=== PATIENT | female | born 1955 | race Caucasian/White ===

== ENCOUNTER → 2020-11-13 | Outpatient (CLI) | payer MEDICARE, OTHER ==
[~2020-11-13] MED LIST: IOHEXOL 350 MG/ML 100 ML VIAL. IV ONE
[2020-11-13 16:46] LABS: ALBUMIN 3.3 g/dL (3.4-5.0); ALBUMIN/GLOBULIN RATIO 0.7 (1.0-1.7); CALCIUM 9.2 mg/dL (8.5-10.1); CREATININE 0.8 mg/dL (0.6-1.0); TOTAL BILIRUBIN 0.2 mg/dL (0.2-1.0); TOTAL PROTEIN 8.3 g/dL (6.4-8.2)
--- NOTE | 2020-11-13 17:13 | RAD ---
Exam: CT of chest with contrast INDICATION: Shortness of breath, chest pain, heaviness TECHNIQUE: Sequential axial images through the chest obtained following the administration of 75 mL o f Omni 350 IV contrast. Sagittal and coronal reformatted images were reconstructed from the axial dariusz a and reviewed. 3-D reformatted images were reconstructed from the axial data and reviewed. Exposure: One or more of the following in the visualized dose reduction techniques were utilized for this examination: 1. Automated exposure control 2. Adjustment of the MA and/or KV according to patient size 3. Use of iterative of reconstructive technique Comparisons: None FINDINGS: Visualized portions of the thyroid are unremarkable. No enlarged mediastinal lymph nodes are identifi ed. Heart size is normal. No pericardial effusion. Thoracic aorta has a normal course and caliber. Pulmon navi artery is not enlarged. No pulmonary embolus identified within the main, lobar or segmental pulmo nary arteries. Airways are patent there is bronchiectatic changes noted in the right middle lobe with adjacent atele ctatic changes. Extensive tree-in-bud nodularity noted predominantly at the lower lobes bilaterally. No pneumothorax. Small right pleural effusion. Visualized upper abdomen is unremarkable. No suspicious osseous lesions or acute fractures. No suspicious osseous lesions or acute fractures. IMPRESSION: 1. No pulmonary embolus identified within the main, lobar or segmental pulmonary arteries. 2. Tree-in-bud nodularity noted lower lobes bilaterally. Infectious or inflammatory in etiology. 3. Bronchiectatic changes in the right middle lobe with associated airspace disease. 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
== END ==
LOC: CT 16:06
PROVIDERS: ATTEND Family Medicine
DX: J90 Pleural effusion, not elsewhere classified (principal); J98.11 Atelectasis; R07.89 Other chest pain
CPT/HCPCS: 36415; 71275; 80053; Q9967